=== PATIENT | female | born 1945 | race Caucasian/White ===

== ENCOUNTER → 2016-04-14 | Outpatient (CLI) | payer OTHER ==
--- NOTE | 2016-04-14 15:45 | DX ---
Right Ankle, Three Views History: Pain, without trauma. M25.579, Findings: There is possibly an 8mm lytic lesion in the posterior talus seen on the lateral view only . Overall mineralization is otherwise normal. No fracture deformity, effusion, or arthritis is ident ified. No erosion, spurring or sclerosis is identified. Impression: Possible lytic lesion in the posterior talus. Recommend either noncontrast MRI or CT for further evaluation. Of course, if there are any old outside x-rays, we would be happy to review them to assess for interval change. Results called to Izabella Duran at 3:41 PM.
== END ==
LOC: CIMAGING 11:27 → EDSTATUS 11:30 → CIMAGING 11:30
PROVIDERS: ATTEND Internal Medicine
DX: M25.571 Pain in right ankle and joints of right foot (principal); M89.9 Disorder of bone, unspecified
CPT/HCPCS: 73610-PO

== ENCOUNTER → 2016-04-19 | Outpatient (CLI) | payer OTHER ==
[~2016-04-19] MED LIST: GADOBUTROL 10 ML VIAL IVP ONE
[2016-04-19 13:35] LABS: CREATININE 0.6 mg/dL (0.6-1.0); GLOMERULAR FILTRATION RATE > 60
--- NOTE | 2016-04-20 09:04 | MR ---
MRI Lower Extremity, Right Ankle, Without and With Contrast History: Ankle pain. Swelling. Technique: MRI was performed of the ankle using a 3 Daniela MRI system. Sagittal, coronal, and axial im aging was obtained with standard imaging sequences. Images were obtained pre- and post intravenous co ntrast, 5 mL Gadavist. Findings: General: Bone marrow edema is seen posterior aspect of the lateral malleolus with enhancement. A smal l subcortical cyst is seen in the posterior margin of the lateral malleolus at the retromalleolar sul cus. No evidence for fracture. No evidence for an osteochondral lesion of the talar dome. Ligaments: There is diminutive anterior talofibular ligament. Posterior talofibular ligament is intac t and calcaneofibular ligament is intact. Anterior and posterior tibiofibular ligaments are intact as well as the deltoid ligament. Peroneal tendons: There is abnormal signal intensity of the peroneal brevis and longus tendon. There is flattening of the peroneal brevis tendon at the retromalleolar sulcus and attenuation distal to th e retromalleolar sulcus. There is attenuation in the peroneal longus tendon distal to the peroneal tu bercle. There is fluid distention of the tendon sheath with enhancement. Superior peroneal retinaculu m is intact. Posterior medial tendons: Unremarkable. Anterior tendons: Unremarkable. Achilles tendon: Achilles tendon is normal in thickness and signal intensity. Mild edema is seen in t he superior aspect of Kager fat pad of uncertain etiology. The adjacent flexor hallucis longus muscle and inferior soleus muscle are unremarkable. Plantar fascia: Minimal edema is seen at the medial cord of the plantar fascia insertion of the calca neus without attenuation. Impression: 1. Moderate to severe tendinopathy and partial tear peroneal brevis and longus tendon with tenosynovi tis and enhancement. Reactive bone marrow edema in the posterior lateral malleolus. 2. 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 3. Nonspecific edema in the superior aspect of Kager fat pad. 4. Minimal plantar fasciitis.
== END ==
LOC: FIMAGING 12:41
PROVIDERS: ATTEND Psychiatry & Neurology Neurology
DX: M70.871 Other soft tissue disorders related to use, overuse and pressure, right ankle and foot (principal); M24.271 Disorder of ligament, right ankle
CPT/HCPCS: 73723; A9585

== ENCOUNTER → 2016-06-22 | Outpatient (CLI) | payer OTHER | LOC: CIMAGING 09:43 | DX: Z12.31 Encounter for screening mammogram for malignant neoplasm of breast (principal); Z80.3 Family history of malignant neoplasm of breast | CPT/HCPCS: G0202 ==

== ENCOUNTER → 2016-06-30 | Outpatient (CLI) | payer OTHER | LOC: CIMAGING 12:37 | DX: Z12.39 Encounter for other screening for malignant neoplasm of breast (principal); N63 Unspecified lump in breast | CPT/HCPCS: 76641; G0206 ==

== ENCOUNTER → 2017-07-26 | Outpatient (CLI) | payer OTHER | LOC: CIMAGING 09:45 | PROVIDERS: ATTEND Internal Medicine | DX: Z12.31 Encounter for screening mammogram for malignant neoplasm of breast (principal); Z85.3 Personal history of malignant neoplasm of breast ==

== ENCOUNTER → 2017-11-12 | Outpatient (CLI) | payer OTHER | LOC: FIMAGING 10:12 | PROVIDERS: ATTEND Orthopaedic Surgery | DX: Z01.818 Encounter for other preprocedural examination (principal); M16.11 Unilateral primary osteoarthritis, right hip ==

== ENCOUNTER 2017-11-18 05:48 | Inpatient (IN) | payer OTHER ==
[2017-11-18] MEDS ORDERED: TRANEXAMIC ACID 1,000 MG in NS 100 ML IV ONE (06:28)
[2017-11-18] MEDS ORDERED: ceFAZolin 2 GM/DEXTROSE 100 ML IV ONE (06:28)
[2017-11-18] MEDS ORDERED: ROPIVACAINE 0.2% 80 MG, EPINEPHrine 0.2 MG, KETOROLAC TROMETHAMINE 30 MG in SYRINGE 0 ML IU ONE (06:28)
[2017-11-18] MEDS ORDERED: DEXAMETHASONE 4 MG/ML VIAL IVP ONE (06:28)
[2017-11-18] MEDS ORDERED: ACETAMINOPHEN 325 MG TAB PO ONE (06:28)
[2017-11-18] MEDS ORDERED: FAMOTIDINE 20 MG TAB PO ONE (06:28)
[2017-11-18] MEDS ORDERED: POVIDONE-IODINE 20 ML in SODIUM CL IRRIG SOLUTION 500 ML IRR ONE (06:28)
[2017-11-18] MEDS ORDERED: LR 1,000 ML IV ONE (06:30)
[2017-11-18] MEDS ORDERED: BUPIVACAINE/EPI 0.5% 30 ML SDV ONE (06:58)
[2017-11-18] MEDS ORDERED: MIDAZOLAM 2 MG/2 ML VIAL IVP ONE (07:03)
--- NOTE | 2017-11-18 07:05 | PDANEPAE ---
ANE History of Present Illness DJD R hip s/f HECTOR ANE Past Medical History - Cardiovascular History Hx Hypertension: No Hx Arrhythmias: No Hx Chest Pain: No Hx Coronary Artery / Peripheral Vascular Disease: No Hx CHF / Valvular Disease: No Hx Palpitations: No - Pulmonary History Hx COPD: No Hx Asthma/Reactive Airway Disease: No Hx Recent Upper Respiratory Infection: No Hx Oxygen in Use at Home: No Hx Sleep Apnea: No Sleep Apnea Screening Result - Last Documented: Negative - Neurologic History Hx Cerebrovascular Accident: No Hx Seizures: No Hx Dementia: No - Endocrine History Hx Diabetes: No - Renal History Hx Renal Disorders: No - Liver History Hx Hepatic Disorders: No - Neurological & Psychiatric Hx Hx Neurological and Psychiatric Disorders: No Neurological / Psychiatric History Comment: ANXIETY - Cancer History Hx Cancer: No - Congenital Disorder History Hx Congenital Disorders: No - GI History Hx Gastrointestinal Disorders: No - Other Health History Other Health History: NEG - Chronic Pain History Chronic Pain: Yes (R HIP) - Surgical History Prior Surgeries: CYST OVARY. TUBAL LIGATION ANE Review of Systems Review of Systems: - Exercise capacity METS (RN): 6 METS ANE Patient History - Allergies Allergies/Adverse Reactions: No Known Allergies Allergy (Unverified 11/17/17 17:28) - Home Medications Home medications: home medication list seen and reviewed Home Medications: Aspirin [Aspirin 81mg (*)] 81 mg PO DAILY 10/24/17 [Last Taken 11/11/17] Cholecalciferol (Vitamin D3) [Vitamin D3] 2,000 unit PO DAILY 10/24/17 [Last Taken 11/11/17] Escitalopram Oxalate [Lexapro] 15 mg PO DAILY 10/24/17 [Last Taken 11/17/17] Herbals/Supplements -Info Only 1 ea PO DAILY 10/24/17 [Last Taken 11/11/17] Ibuprofen [Motrin (*)] 200 mg PO Q4-6PRN PRN 10/24/17 [Last Taken 11/11/17] Multivitamins [Multivitamin (*)] 1 each PO DAILY 10/24/17 [Last Taken 11/11/17] [place]-3 Fatty Acids [Fish Oil 1000 mg (*)] 2,000 mg PO DAILY 10/24/17 [Last Taken 11/11/17] Propylene Glycol/Peg 400 [Systane 0.3-0.4% Eye Drops] 1 - 2 drops OP DAILY PRN 10/24/17 [Last Taken 11/18/17] traZODone [traZODONE 50MG (*)] 50 mg PO HS 10/24/17 [Last Taken 11/17/17] - NPO status NPO Since - Liquids (Date): 11/18/17 NPO Since - Liquids (Time): 04:00 (black coffee) NPO Since - Solids (Date): 11/17/17 NPO Since - Solids (Time): 16:00 - Smoking Hx Smoking Status: Former smoker - Alcohol Use Alcohol Use: Rarely - Family Anes Hx Family Anes Hx: none Family Hx Anesthesia Complications: NEG ANE Labs/Vital Signs - Vital Signs Blood Pressure: 133/81 Heart Rate: 60 Respiratory Rate: 16 O2 Sat (%): 94 Height: 160.02 cm Weight: 53.524 kg ANE Physical Exam - Airway Neck exam: FROM Mallampati Score: Class 2 Mouth exam: normal dental/mouth exam (bridge removed) - Pulmonary Pulmonary: no respiratory distress - Cardiovascular Cardiovascular: regular rate and rhythym - ASA Status ASA Status: I ANE Anesthesia Plan Anesthesia Plan: MAC, spinal
--- NOTE | 2017-11-18 07:17 | PDHPUP ---
History & Physical Update H&P update statement: This history and physical update is based on an assessment of the patient which was completed after admission or registration (within 24 hours), but prior to the surgery/procedure. H&P update: H&P reviewed & patient examined, no change in patient's condition since H&P completed
[2017-11-18] MEDS ORDERED: fentaNYL 100 MCG/2 ML INJ ONE (07:19)
[2017-11-18] MEDS ORDERED: PROPOFOL/EMULSION 500 MG/50 ML BOTTLE IV ONE (07:20)
[2017-11-18] MEDS ORDERED: PROPOFOL 200 MG/20 ML VIAL ONE ×2 (08:36→09:15)
[2017-11-18] MEDS ORDERED: HYDROmorphONE/DILAUDID 1 MG/ML INJ IVP PRN (09:27)
[2017-11-18] MEDS ORDERED: METOCLOPRAMIDE 10 MG/2 ML VIAL IVP PRN ×2 (09:27→09:49)
[2017-11-18] MEDS ORDERED: ALBUTEROL 3 ML DEYVIAL IH PRN (09:27)
[2017-11-18] MEDS ORDERED: fentaNYL 100 MCG/2 ML INJ IVP PRN (09:27)
[2017-11-18] MEDS ORDERED: oxyCODONE IR 5 MG TAB PO PRN (09:27)
[2017-11-18] MEDS ORDERED: HYDROCODONE/APAP 5/325 TAB PO PRN (09:27)
[2017-11-18] MEDS ORDERED: PHENYLEPHRINE HCL 100 MCG/ML SYR IVP PRN (09:27)
[2017-11-18] MEDS ORDERED: LR 500 ML IV PRN (09:27)
[2017-11-18] MEDS ORDERED: PROMETHAZINE HCL 25 MG/ML INJ IVP PRN ×2 (09:27→09:49)
[2017-11-18] MEDS ORDERED: LABETALOL HCL 5 MG/ML 20 ML MDV IVP PRN (09:27)
[2017-11-18] MEDS ORDERED: ACETAMINOPHEN 500 MG TAB PO PRN (09:27)
[2017-11-18] MEDS ORDERED: ONDANSETRON 4 MG/2 ML VIAL IVP PRN ×2 (09:27→09:49)
[2017-11-18] MEDS ORDERED: DEXAMETHASONE 4 MG/ML VIAL IVP PRN (09:27)
[2017-11-18] MEDS ORDERED: NALOXONE HCL 0.4 MG/ML INJ IVP PRN (09:27)
[2017-11-18] MEDS ORDERED: PROMETHAZINE HCL 25 MG SUPPR PR PRN (09:49)
[2017-11-18] MEDS ORDERED: MAGNESIUM HYDROXIDE 30 ML UDCUP PO PRN (09:49)
[2017-11-18] MEDS ORDERED: diphenhydrAMINE 25 MG CAP PO PRN (09:49)
[2017-11-18] MEDS ORDERED: DIPHENOXYLATE/ATROPINE LOMOTIL 1 TAB PO PRN (09:49)
[2017-11-18] MEDS ORDERED: TEMAZEPAM 15 MG CAP PO PRN (09:49)
[2017-11-18] MEDS ORDERED: BISACODYL 10 MG SUPP PR PRN (09:49)
[2017-11-18] MEDS ORDERED: LACTULOSE 20 GM/30 ML UDCUP PO PRN (09:49)
[2017-11-18] MEDS ORDERED: POLYETHYLENE GLYCOL 3350 17 GM PKT PO PRN (09:49)
--- NOTE | 2017-11-18 09:57 | POSTOPPROG ---
Post Op Note Date of Operation: 11/18/17 Surgeon: Adryan Norton Armature Balancer: JOY Hart Anesthesiologist: MD Eliezer Anesthesia: IV Sedation, Spinal Pre-op Diagnosis: R hip OA Post-op Diagnosis: same Procedure: R anterior HECTOR with [place] Inf/Abcess present in the surg proc area at time of surgery?: No EBL: 100-500 (300) Drains: Hemovac
[2017-11-18] MEDS ORDERED: TEARS/DEXTRAN 70/HYPROMELLOSE 15 ML OPHT.BTL EACHEYE PRN (10:03)
--- NOTE | 2017-11-18 10:11 | POSTANESTH ---
Post Anesthetic Evaluation Cardiovascular Status: Normal, Stable Respiratory Status: Normal, Stable, Tx Decrease in SpO2 Level of Consciousness/Mental Status: Can Participate in Eval Pain Control: Adequate, Prn Tx Ordered Nausea/Vomiting Control: Adequate, Prn Tx Ordered Complications Possibly Related to Anesthesia: None Noted
[2017-11-18] MEDS: ACETAMINOPHEN 325 MG TAB PO SCH ×3 (12:37→23:01)
--- NOTE | 2017-11-18 14:16 | PDMN ---
Medical Necessity Medical necessity: Pt meets inpt criteria per MD order and [facility] S-560, Hip Arthroplasty, inpt only surgery, CPT 79485, A-2 days. Est LOS>2MN for R anterior HECTOR w/[place] and post-op care/eval/treatment.
[2017-11-18] MEDS: ceFAZolin 2 GM/DEXTROSE 100 ML IV SCH ×2 (16:45→22:59)
[2017-11-18] MEDS: FAMOTIDINE 20 MG TAB PO SCH (22:16)
[2017-11-18] MEDS: oxyCODONE IR 5 MG TAB PO PRN (22:17)
[2017-11-18] MEDS: ASPIRIN 81 MG CHEWABLE TAB PO SCH (22:17)
[2017-11-18] MEDS: SENNOSIDES/DOCUSATE SODIUM TAB PO SCH (22:17)
[2017-11-18] MEDS: LR 1,000 ML IV SCH (22:57)
[2017-11-18] MEDS: traZODone 50 MG TAB PO SCH (23:59)
[2017-11-19] MEDS: CYCLOBENZAPRINE 10 MG TAB PO PRN ×2 (02:59→11:03)
[2017-11-19] MEDS: oxyCODONE IR 5 MG TAB PO PRN (06:15)
[2017-11-19] MEDS: ACETAMINOPHEN 325 MG TAB PO SCH ×3 (06:17→17:40)
[2017-11-19] MEDS: LR 1,000 ML IV SCH (06:34)
--- NOTE | 2017-11-19 07:46 | SOAPPROG ---
SOAP Progress Note Assessment/Plan: Assessment: Postop day 1 status post right anterior approach total hip arthroplasty Plan: Orthostatic hypotension: Minimize narcotics if possible, 1 L bolus prior to PT Weight-bearing as tolerated with PT OT Aspirin 81 mg twice daily Manohar hose and SCDs for DVT prophylaxis Incentive spirometry 10 times per hour Dispo: Home today if stable and doing well with Physical therapy this morning 11/19/17 07:42 Subjective: Episode of lightheadedness and clamminess yesterday postop the associated with hypotension. Patient states this has happened previously in her lifetime without identifiable contributing factors. Denies fevers chills nausea vomiting chest pain shortness of breath numbness tingling. Denies lighted headedness dizziness while in bed. Walked around her room yesterday with a walker. Objective: Vital Signs Temp Pulse Resp BP Pulse Ox 36.8 C 56 L 17 91/56 L 92 11/19/17 03:00 11/19/17 03:00 11/19/17 03:00 11/19/17 03:00 11/19/17 03:00 Laboratory Results 11/19/17 04:16 11/18/17 11/19/17 11/20/17 05:59 05:59 05:59 Intake Total 2750 Output Total 1770 330 Balance 980 -330 Awake alert and oriented x3 Easy nonlabored breathing Right hip: Dressing clean dry intact no erythema drainage or signs of infection Mild swelling, minimal ecchymosis Drain discontinued after 60 cc of output Thigh and calf compartments soft and compressible Sensation intact to light touch from L4-S1 Motor intact to EHL FHL tibialis anterior gastrocsoleus Palpable DP PT pulses - Time Spent With Patient Time Spent With Patient: 15 - Pending Discharge Pending Discharge Within 24 Hours: Yes Pending Discharge Date: 11/20/17 Pending Discharge Time: 11:00 ICD10 Worksheet Patient Problems: Problems Problem Status Onset Osteoarthritis of right hip Acute
[2017-11-19] MEDS: SENNOSIDES/DOCUSATE SODIUM TAB PO SCH ×2 (08:35→20:40)
[2017-11-19] MEDS: FAMOTIDINE 20 MG TAB PO SCH ×2 (08:35→20:40)
[2017-11-19] MEDS: CHOLECALCIFEROL VIT D3 2,000 UNITS TAB/CAP PO SCH (08:35)
[2017-11-19] MEDS: MULTIVITAMINS 1 EACH TAB PO SCH (08:35)
[2017-11-19] MEDS: ESCITALOPRAM OXALATE 10 MG TAB PO SCH (08:35)
[2017-11-19] MEDS: ASPIRIN 81 MG CHEWABLE TAB PO SCH ×2 (08:35→20:40)
[2017-11-19] MEDS ORDERED: NS 1,000 ML IV ONE (09:00)
--- NOTE | 2017-11-19 13:59 | ASMTCMCOM ---
CM Note CM Note Notes: Pt's chart reviewed for D/C planning. Pt is a 72 y/o female hospitalized for Hip Arthroplasty. PT has evaluated her and has recommended home without in-home PT services. Pt's son requested information on non-skilled services. CM spoke with him on the phone and left a Senior Blue Book in his mother's room. No CM needs identified. CM will follow if things change. D/C Plan: Home independent, with family support. Date Signed: 11/19/2017 01:59 PM Electronically Signed By:Xochitl Garsia
--- NOTE | 2017-11-19 14:52 | GOP ---
DATE OF OPERATION: 11/18/2017 SURGEON: Adryan Norton MD VOTATOR MACHINE OPERATOR: Dipesh Hart, CSFA, LSA; retail assistant was required for the procedure due to the complex ity of the case and the patient's condition for positioning, prepping, draping, retraction, and closu re. ANESTHESIA: Spinal with IV sedation. PREOPERATIVE DIAGNOSIS: Right hip osteoarthritis. POSTOPERATIVE DIAGNOSIS: Right hip osteoarthritis. PROCEDURE PERFORMED: Right hip anterior approach hip replacement with MAKOplasty, robotic guidance, and fluoroscopic supervision greater than 1 hour. FINDINGS: SPECIMENS: None. ESTIMATED BLOOD LOSS: 300 cc. INDICATIONS: Patient has severe hip osteoarthritis that failed to improve with conservative measures significantly affecting activities of daily living including walking. The patient elected to procee d with anterior approach hip replacement using MAKOplasty robotic guidance after extensive discussion of all possible approaches as well as the risks, benefits, pros, cons, expected recovery, and progno sis. The patient verbalized an understanding of the risks and benefits of the procedure and signed i nformed consent prior to the procedure. DESCRIPTION OF PROCEDURE: The patient was seen in the holding area, and the operative consent and ex tremity were signed. The patient is taken to the operating room. After smooth induction of spinal a nesthesia and sedation, the patient was placed in supine position on the Steris fracture table. The hip and contralateral iliac crest were prepped and draped in usual sterile fashion. Operative site w as confirmed by signature. Operative time-out performed, allergies reviewed, and antibiotics and TXA were administered. Three pins were placed in the contralateral iliac crest. Pelvic array was fixed. It was well visual ized by the robot. Desired incision for the anterior approach on the hip was infiltrated 0.25% Yvonne ine with epinephrine. Incision was made with a 10 blade, carried through subcutaneous tissue to iden tify the TFL fascia. This was incised in line with the incision, and the TFL was retracted laterally . Lateral femoral circumflex vessels were coagulated with Aquamantys and Bovie electrocautery. The deep TFL fascia was incised, and the vastus lateralis was clearly exposed. Precapsular fat was excis ed. A T-shaped capsulotomy was performed. The capsule was preserved for later closure. The femoral checkpoint was fixed into the anterior greater trochanter. Express registration was comp leted. The femoral neck cut was then performed based on pretemplated calculations and imaging. The femoral head was excised with a corkscrew. The acetabulum was exposed in standard fashion. The labrum and pulvinar were excised sharply. The p elvic checkpoint was placed in the AIIS. Acetabular registration was performed using the robot. Anna nacho was then performed using the robot to the desired size. Cup was impacted into place again with robotic guidance. Good fixation was achieved. The cup was irrigated and dried, and the liner was im pacted into place achieving good locking within the cup. The femur was then exposed in standard fashion. The femur was broached to the desired size. Trial n will and head were attached, and the hip was relocated. Length and offset were confirmed using the ro bot. The position of all components was also confirmed at this point fluoroscopically. The hip was dislocated, and femoral trial components were removed. The stem was impacted into place. Trunnion w as cleaned, dried, and the head was impacted down onto the trunnion. The wound was copiously irrigat ed including the cup with pulse lavage, and the hip was once again relocated. Component placement wa s confirmed with fluoroscopy. All checkpoints were removed. The pelvic array was removed. The woun d was copiously irrigated with sterile solution. Dilute Betadine solution was then irrigated in the wound, allowed to soak for 3 minutes before being irrigated out. Joint cocktail was injected in the soft tissues. The capsule was repaired with #1 Vicryl. Indirect head of the rectus femoris was also repaired with #1 Vicryl. Drain was placed exiting distally and laterally from deep to TFL. The wou nd was then closed in layers of 0 Quill in the TFL fascia and deep subcutaneous fat, 3-0 Versalok in the dermis. The wound was then dressed with sterile dressings. The patient was safely awakened and taken to the recovery room in stable condition. All critical portions of procedure were performed by myself, Dr. Norton. The operative note was create d by myself, Dr. Norton. I was immediately available for emergency cross-coverage at all times. DRAINS: One Hemovac. COMPLICATIONS: None. IMPLANTS: Include a Trident II titanium cluster hole acetabular shell size 52; a 0-degree, 36 mm lexus yethylene insert; ceramic V40 femoral head, 36 mm, +0 neck length; Accolade II 127-degree neck angle stem, size 5. /[id number]/MODL
[2017-11-19] MEDS: traZODone 50 MG TAB PO SCH (20:40)
[2017-11-20] MEDS: ACETAMINOPHEN 325 MG TAB PO SCH ×3 (00:08→14:08)
[2017-11-20 07:45] VITALS: BP 150/77
[2017-11-20] MEDS: CHOLECALCIFEROL VIT D3 2,000 UNITS TAB/CAP PO SCH (11:26)
[2017-11-20] MEDS: ASPIRIN 81 MG CHEWABLE TAB PO SCH (11:26)
[2017-11-20] MEDS: ESCITALOPRAM OXALATE 10 MG TAB PO SCH (11:26)
[2017-11-20] MEDS: FAMOTIDINE 20 MG TAB PO SCH (11:27)
[2017-11-20] MEDS: SENNOSIDES/DOCUSATE SODIUM TAB PO SCH (11:27)
--- NOTE | 2017-11-20 11:34 | SOAPPROG ---
SOAP Progress Note Assessment/Plan: Assessment/plan: 72 yo female Pod#2 s/p right anterior approach total hip arthroplasty -discharge home today -pain meds: cont celebrex, no other NSAIDs -proph: terrell obrien, scd's, incentive spirometry, asa -f/u w/ dr. salguero as scheduled -20 lb flat foot weight bearing as instructed by dr. salguero. 11/23/17 09:18 11/23/17 09:19 Subjective: Patient reports no issues over night, pain is well controlled, she denies any fevers or chills, denies any n/v/d/c, is voiding well, moving her bowels w/o issues. denies numbness/tingling, reports she is ready to go home Objective: RLE: dressings c/d/i, no surrounding erythema or discharge or other signs of infection, appropriately ttp, no pain with flex/ex of hip, neg log roll, grossly nvid Vital Signs Temp Pulse Resp BP Pulse Ox 37.1 C 75 16 150/77 H 96 11/20/17 07:44 11/20/17 07:44 11/20/17 07:44 11/20/17 07:44 11/20/17 07:44 Laboratory Results 11/20/17 04:20 11/19/17 11/20/17 11/21/17 05:59 05:59 05:59 Intake Total 2750 1800 440 Output Total 1770 3780 450 Balance 980 -1980 -10 ICD10 Worksheet Patient Problems: Problems Problem Status Onset Osteoarthritis of right hip Acute
--- NOTE | 2017-11-20 11:34 | PDIAF ---
- Diagnosis Diagnosis: left hip pain w/ cellulitis, concern for infected hardware Code Status: Full Code - Medication Management Discharge Medications: Medications to Continue on Transfer Cholecalciferol (Vitamin D3) [Vitamin D3] 2,000 unit PO DAILY 10/24/17 [Last Taken 11/11/17] Escitalopram Oxalate [Lexapro 10 MG] 15 mg PO DAILY 10/24/17 [Last Taken ] Multivitamins [Multivitamin (*)] 1 each PO DAILY 10/24/17 [Last Taken 11/11/17] Propylene Glycol/Peg 400 [SYSTANE 0.3-0.4% EYE DROPS] 1 - 2 drops OP DAILY PRN 10/24/17 [Last Taken 11/18/17] Aspirin [Aspirin 81mg (*)] 81 mg PO BID tab.chew 11/19/17 [Last Taken Unknown] celeCOXIB [Celebrex (*)] 200 mg PO DAILY #21 cap 11/19/17 [Last Taken Unknown] traZODone [traZODONE 50MG (*)] 50 mg PO HS #0 11/19/17 [Last Taken 11/17/17] Discharge Medications: Refer to the Discharge Home Medication list for PRN reason. PICC Care - Routine: N/A - Orders Services needed: Physical Therapy, Occupational Therapy Diet Recommendation: no restrictions on diet Diet Texture: Regular Texture Diet Activity/Weight Bearing Restrictions: RLE: 20 lb flat foot weight bearing MAX Additional Instructions: WBAT see handout - Follow Up Care Current Providers and Referrals: Carlene Duran MD [Primary Care Provider] -
--- NOTE | 2017-11-20 11:41 | PDIAF ---
- Diagnosis Diagnosis: left hip pain w/ cellulitis, concern for infected hardware Code Status: Full Code - Medication Management Discharge Medications: Medications to Continue on Transfer Cholecalciferol (Vitamin D3) [Vitamin D3] 2,000 unit PO DAILY 10/24/17 [Last Taken 11/11/17] Escitalopram Oxalate [Lexapro 10 MG] 15 mg PO DAILY 10/24/17 [Last Taken ] Multivitamins [Multivitamin (*)] 1 each PO DAILY 10/24/17 [Last Taken 11/11/17] Propylene Glycol/Peg 400 [SYSTANE 0.3-0.4% EYE DROPS] 1 - 2 drops OP DAILY PRN 10/24/17 [Last Taken 11/18/17] Aspirin [Aspirin 81mg (*)] 81 mg PO BID tab.chew 11/19/17 [Last Taken Unknown] celeCOXIB [Celebrex (*)] 200 mg PO DAILY #21 cap 11/19/17 [Last Taken Unknown] traZODone [traZODONE 50MG (*)] 50 mg PO HS #0 11/19/17 [Last Taken 11/17/17] Discharge Medications: Refer to the Discharge Home Medication list for PRN reason. PICC Care - Routine: N/A - Orders Services needed: Home Care, Physical Therapy, Occupational Therapy Home Care Face to Face: I certify that this patient was under my care and that I had the required [id number] encounter meeting the encounter requirements on the discharge day. My findings support the fact that the patient is homebound as defined in Home Care Face to Face Continued: CMS Chapter 7 Medicare Benefits Manual 30.1.1 , The condition of the patient is such that there exists a normal inability to leave home and consequently, leaving home would require a considerable and taxing effort. Diet Recommendation: no restrictions on diet Diet Texture: Regular Texture Diet Activity/Weight Bearing Restrictions: RLE: 20 lb flat foot weight bearing MAX Additional Instructions: RLE:flat foot 20 lb weight bearing max see handout - Follow Up Care Current Providers and Referrals: Adryan Norton MD [Medical Doctor] - follow up in 1 week (patient to call and schedule appointment w/ dr. norton or staff) Carlene Duran MD [Primary Care Provider] -
[2017-11-20] MEDS: MULTIVITAMINS 1 EACH TAB PO SCH (11:51)
--- NOTE | 2017-11-20 12:20 | ASMTDCNOTE ---
Case Management Discharge Discharge Order Complete? Answers: Yes Patient to Obtain Answers: via Family Medications Transportation Arranged Answers: Family/Friends Family Notified Answers: Yes Discharge Comments Notes: Pt is discharging home today with [facility], PT/OT. Spoke with [facility] [phone] who accepted pt. Referral info: D/C orders, meds sent via [employer]. Pt's son has arranged for non-skilled care through [facility]. Date Signed: 11/20/2017 12:19 PM Electronically Signed By:BRITTNEY Stark
--- NOTE | 2017-11-20 12:21 | ASDISCHSUM ---
Discharge Information Plan Status:Home with Home Health Medically Cleared to Leave:11/20/2017 Discharge Date:11/20/2017 CM D/C Disposition:Home Health Service ADT D/C Disposition:Home Health Service Projected Discharge Date:11/20/2017 11:00 AM Transportation at D/C: Discharge Delay Reason: Follow-Up Date:11/20/2017 11:00 AM Discharge Slot: Final Diagnosis: Placement Information Referral Type:*Home Health Care Services Referral ID:[id number] Provider Name:[facility] Address 1:[address] Address 2: City:[place] Selection Factors: State:[place] Patient Contact Information Contact Name:EVELIA Relationship:Daughter Address: Home Phone: City: [facility] Phone: [facility] Code: Email: Financial Information Financial Class:Medicare Advantage Plans Primary Plan Desc:[facility] MEDICARE COMPLETE Primary Plan Number:[id number] Secondary Plan Desc: Secondary Plan Number: Assessment Information LACE LACE Length of stay for Answers: 2 days current admission Acuity / Level of Answers: Yes Care: Did the patient have an inpatient admission? Comorbidities - select Answers: Opioid dependence all that apply / Chronic pain # of Emergency department Answers: 0 visits in the last 6 months Social determinants Answers: Mental health diagnosis (anxiety, depression, pers onality disorders, etc.) Score: 12 Date Signed: 11/20/2017 12:20 PM Electronically Signed By:BRITTNEY Stark [facility] Progress Note CM Note CM Note Notes: Pt's chart reviewed for D/C planning. Pt is a 72 y/o female hospitalized for Hip Arthroplasty. PT has evaluated her and has recommended home without in-home PT services. Pt's son requested information on non-skilled services. CM spoke with him on the phone and left a Senior Blue Book in his mother's room. No CM needs identified. CM will follow if things change. D/C Plan: Home independent, with family support. Date Signed: 11/19/2017 01:59 PM Electronically Signed By:Xochitl Garsia Case Management Discharge Plan Note Case Management Discharge Discharge Order Complete? Answers: Yes Patient to Obtain Answers: via Family Medications Transportation Arranged Answers: Family/Friends Family Notified Answers: Yes Discharge Comments Notes: Pt is discharging home today with [facility], PT/OT. Spoke with [facility] [phone] who accepted pt. Referral info: D/C orders, meds sent via [email or web address]. Pt's son has arranged for non-skilled care through [facility]. Date Signed: 11/20/2017 12:19 PM Electronically Signed By:BRITTNEY Stark Intervention Information
== END 2017-11-20 14:27 | disposition home health service (06) | DRG 470 ==
LOC: F3N 05:48
PROVIDERS: ADMIT Orthopaedic Surgery; ATTEND Orthopaedic Surgery
PROC: 0SR904Z Replacement of Right Hip Joint with Ceramic on Polyethylene Synthetic Substitute, Open Approach (ICD-10-PCS; principal; 2017-11-18 07:15)
PROC: 8E0Y0CZ Robotic Assisted Procedure of Lower Extremity, Open Approach (ICD-10-PCS; principal; 2017-11-18 07:15)
DX: M16.11 Unilateral primary osteoarthritis, right hip (principal); I95.1 Orthostatic hypotension
CPT/HCPCS: 97116-GP; 97161-GP; 97166-GO; 97530-GP; 97535-GO; G8978-GP-CJ; G8979-GP-CI; G8980-GP-CI; G8987-GO-CI; G8987-GO-CJ; G8988-GO-CI; G8989-GO-CI; J0171; J0690; J1100; J1885; J2250; J2405; J2704; J2795; J3010